=== PATIENT | male | born 1970 | race African-American/Black ===

== ENCOUNTER 2018-01-09 12:23 | Emergency (ER) | payer OTHER ==
[~2018-01-09] VITALS: Ht 188 cm; Wt 104.3 kg
[~2018-01-09 12:23] MED LIST: HYDROCODON-ACE1 EAC7 PO; LIDODERM 5%1 PATC1 TOP; PREDNISONE 20 M20 MG PO; TRAMADOL 50 MG50 MG PO; XARELTO15 MG PO
[2018-01-09] MEDS ORDERED: XARELTO15 MG PO (14:28)
[2018-01-09 14:42] VITALS: BP 133/79
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
== END 2018-01-09 14:44 | disposition home or self-care (01) ==
LOC: M.ERS 12:23
PROVIDERS: Nurse Practitioner Family
DX: I82.401 Acute embolism and thrombosis of unspecified deep veins of right lower extremity (principal); Z86.718 Personal history of other venous thrombosis and embolism; Z88.5 Allergy status to narcotic agent

== ENCOUNTER 2018-01-30 12:32 | Emergency (ER) | payer OTHER ==
[~2018-01-30] VITALS: Ht 188 cm; Wt 108.9 kg
[2018-01-30 13:44] LABS: ABSOLUTE EOSINOPHILS 0.3 thou/uL (0.0-0.7); ABSOLUTE LYMPHOCYTES 2.3 thou/uL (0.8-5.3); ABSOLUTE MONOCYTES 0.6 thou/uL (0.0-1.2); ABSOLUTE NEUTROPHILS 3.5 thou/uL (1.6-8.1); BASOPHILS 0.7 %; EOSINOPHILS 3.9 %; HEMATOCRIT 42.3 % (42.0-52.0); HEMOGLOBIN 14.5 gm/dL (14.0-18.0); LYMPHOCYTES 34.8 %; MCH 32.8 pg (26.0-34.0); MCHC 34.2 g/dL (28.0-37.0); MCV 95.9 fL (80.0-100.0); MONOCYTES 8.2 %; MPV 7.9 fl. (7.2-11.1); NUCLEATED RBCS 0 /100WBC; PLATELET COUNT* 307 thou/uL (150-400); POLYS 52.4 %; RBC 4.41 mil/uL (4.50-6.00); RDW-CV 13.6 % (10.5-14.5); WBC 6.7 thou/uL (4.0-11.0)
[2018-01-30 13:53] LABS: APTT 29.4 Seconds (25.0-31.3); PROTIME 9.8 Seconds (9.20-11.50)
[2018-01-30 13:54] LABS: CALCIUM 9.3 mg/dL (8.5-10.1); POTASSIUM 3.7 mmol/L (3.5-5.1)
[2018-01-30 13:59] LABS: ALBUMIN 3.6 g/dL (3.4-5.0); TOTAL BILIRUBIN 0.1 mg/dL (<0.1-1.0); TOTAL PROTEIN 8.3 g/dL (6.4-8.2)
[2018-01-30] MEDS ORDERED: NORCO 5-325 TA1 EACH PO (14:42)
[2018-01-30] MEDS ORDERED: KEFLEX500 M1 PO (14:51)
[2018-01-30] MEDS ORDERED: XARELTO15 MG PO (14:51)
[2018-01-30 15:08] VITALS: BP 106/64
== END 2018-01-30 15:09 | disposition home or self-care (01) ==
LOC: M.ERS 12:32
PROVIDERS: Physician Assistant
DX: I82.491 Acute embolism and thrombosis of other specified deep vein of right lower extremity (principal); L72.3 Sebaceous cyst; F17.200 Nicotine dependence, unspecified, uncomplicated; Z88.5 Allergy status to narcotic agent

== ENCOUNTER → 2018-04-29 | Outpatient (CLI) | payer OTHER ==
[~2018-04-29] MED LIST changes: +KEFLEX500 M1 PO; +NORCO 5-325 TA1 EACH PO
== END ==
LOC: M.ULTRA 15:11
DX: I82.511 Chronic embolism and thrombosis of right femoral vein (principal); I82.531 Chronic embolism and thrombosis of right popliteal vein; F17.290 Nicotine dependence, other tobacco product, uncomplicated